=== PATIENT | female | born 1985 ===

== ENCOUNTER 2017-10-24 12:57 | Emergency (ER) | payer MEDICAID, OTHER ==
[2017-10-24 13:03] VITALS: BMI 40.8
[2017-10-24 13:05] VITALS: RESP 18; O2SAT 99
[2017-10-24 13:49] LABS: BASO # 0.1 K/uL (0.0-0.2); BASO % 0.6 % (0.0-2.0); EOS # 0.3 K/uL (0.0-0.7); EOS % 3.8 % (0.0-4.0); LYMPH # 2.1 K/uL (1.0-4.3); LYMPH % 26.5 % (20.0-40.0); MEAN CORPUSCULAR HEMOGLOBIN 28.9 pg (27.0-31.0); MEAN CORPUSCULAR HGB CONC 34.2 g/dL (33.0-37.0); MEAN PLATELET VOLUME 8.3 fL (7.2-11.7); MONO # 0.4 K/uL (0.0-0.8); MONO % 5.3 % (0.0-10.0); NEUT % 63.8 % (50.0-75.0); RBC 4.16 Mil/uL (3.80-5.20); RED CELL DISTRIBUTION WIDTH 13.8 % (11.5-14.5); WHITE BLOOD COUNT 7.9 K/uL (4.8-10.8)
[2017-10-24 14:01] LABS: MEAN CELL VOLUME 84.5 fL (81.0-99.0)
[2017-10-24 14:04] LABS: ALT/SGPT 23 U/L (9-52); BLOOD UREA NITROGEN 14 mg/dL (7-17); CALCIUM 8.7 mg/dl (8.6-10.4); GFR AFRICAN-AMERICAN > 60; GFR NON-AFRICAN AMERICAN > 60
[2017-10-24 14:08] LABS: ALBUMIN 3.8 g/dL (3.5-5.0)
--- NOTE | 2017-10-24 14:14 | C.PDOC ---
History Of Present Illness 32 year old female, , presents to ED for evaluation of pelvic camping and vaginal spotting which started last night. Pt notes bright red blood when wiping , and has not used any pads. Pt states she has had one pre-sylvia visit which was last month, and is scheduled for another visit tomorrow. Denies vaginal discharge, dysuria, urinary frequency, fever, chills, back pain, nausea, or vomiting. Time Seen by Provider: 10/24/17 13:06 Chief Complaint (Nursing): Female Genitourinary History Per: Patient History/Exam Limitations: no limitations Onset/Duration Of Symptoms: Days (1) Current Symptoms Are (Timing): Still Present Quality Of Discomfort: Cramping, "Pain" Associated Symptoms: denies: Loss Of Appetite, Back Pain, Chest Pain, Constipation, Urinary Symptoms Alleviating Factors: None Recent travel outside of the [place]: No Additional History Per: Patient : 3 Para: 1 Past Medical History Reviewed: Historical Data, Nursing Documentation, Vital Signs Vital Signs: Last Vital Signs Temp 97.7 F 10/24/17 15:45 Pulse 73 10/24/17 15:45 Resp 18 10/24/17 15:45 BP 111/72 10/24/17 15:45 Pulse Ox 99 10/24/17 15:45 - [facility] Procedures LOW CERVICAL (01/07/15) 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 Constitutional: Negative for: Fever, Chills Gastrointestinal: Positive for: Abdominal Pain. Negative for: Nausea, Vomiting , Diarrhea, Constipation Genitourinary: Positive for: Vaginal Bleeding (spotting), Pelvic Pain. Negative for: Dysuria, Frequency, Hematuria, Vaginal Discharge Musculoskeletal: Negative for: Back Pain Physical Exam - Physical Exam Appears: Non-toxic, No Acute Distress Skin: Normal Color, Warm, Dry Head: Atraumatic, Normacephalic Eye(s): bilateral: Normal Inspection, EOMI Nose: Normal Oral Mucosa: Moist Neck: Normal ROM, Supple Chest: Symmetrical Cardiovascular: Rhythm Regular Respiratory: Normal Breath Sounds, No Rales, No Rhonchi, No Wheezing Gastrointestinal/Abdominal: Soft, Tenderness (suprapubic), No Guarding, No Rebound Back: No CVA Tenderness Extremity: Normal ROM Neurological/Psych: Oriented x3, Normal Speech ED Course And Treatment - Laboratory Results Result Diagrams: 10/24/17 13:42 10/24/17 13:42 O2 Sat by Pulse Oximetry: 99 (RA) Pulse Ox Interpretation: Normal - CT Scan/US Pelvis US Other Rad Studies (CT/US): Read By Radiologist, Radiology Report Reviewed CT/US Interpretation: Indication: Bleeding. Comparison: None available. Technique: Real-time transabdominal pelvic ultrasound was performed. In addition a transvaginal pelvic ultrasound was necessary to better depict pelvic anatomy. Findings: Uterus measures approximately 11.6 x 4.0 x 6.9 cm. Anteverted. Cervix length measures approximately 3.5 cm. There is a single intrauterine fetus present. The gestational sac measures 2.2 cm and is compatible with a gestational age of 6 weeks 5 days. The crown-rump length measures 0.7 cm and is compatible with a gestational age of 6 weeks 4 days. heart motion was not detected during this examination. The right ovary measures 2.3 x 2.5 x 3.5 cm. The left ovary measures 3.0 x 2.7 x 2.8 cm. Blood flow was demonstrated to both ovaries. Impression: Single intrauterine with estimated gestational age 6 weeks 5 days. heart rate was not detected during this examination. Correlate clinically and follow-up as indicated. Progress Note: Blood work, UA, Preg 1st trimester ultrasound ordered and reviewed. Pt was given Tylenol. On re-eval, patient is resting comfortably, no acute distress. Abdomen remains soft. Pt was given labs and US results and instructed to follow up with her OB as scheduled tomorrow. Disposition - Disposition Disposition: HOME/ ROUTINE Disposition Time: 15:03 Condition: STABLE Additional Instructions: Beta HCG today is 14,000. Follow up with your [employer] [employer] tomorrow as scheduled and show them the results of US. 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 - Scribe Statement The provider has reviewed the documentation as recorded by the Scribe Kripal Burt All medical record entries made by the Eb were at my direction and personally dictated by me. I have reviewed the chart and agree that the record accurately reflects my personal performance of the history, physical exam, medical decision making, and the department course for this patient. I have also personally directed, reviewed, and agree with the discharge instructions and disposition.
[2017-10-24 14:22] LABS: ALB/GLOB RATIO 1.1 (1.0-2.1)
[2017-10-24 14:27] LABS: AST/SGOT 17 U/L (14-36)
--- NOTE | 2017-10-24 14:53 | US ---
Indication: Bleeding Comparison: None available Technique: Real-time transabdominal pelvic ultrasound was performed. In addition a transvaginal pelvic ultrasound was necessary to better depict pelvic anatomy. Findings: Uterus measures approximately 11.6 x 4.0 x 6.9 cm. Anteverted. Cervix length measures approximately 3.5 cm. There is a single intrauterine fetus present. The gestational sac measures 2.2 cm and is compatible with a gestational age of 6 weeks 5 days. The crown-rump length measures 0.7 cm and is compatible with a gestational age of 6 weeks 4 days. heart motion was not detected during this examination. The right ovary measures 2.3 x 2.5 x 3.5 cm. The left ovary measures 3.0 x 2.7 x 2.8 cm. Blood flow was demonstrated to both ovaries. Impression: Single intrauterine with estimated gestational age 6 weeks 5 days. heart rate was not detected during this examination. Correlate clinically and follow-up as indicated.
[2017-10-24 15:18] LABS: HCG,QUALITATIVE URINE POSITIVE (NEGATIVE)
[2017-10-24 15:30] LABS: URINE BILIRUBIN NEGATIVE (NEGATIVE); URINE BLOOD 2+ (NEGATIVE); URINE CLARITY Clear (Clear); URINE COLOR Colorless (YELLOW); URINE GLUCOSE (UA) NORMAL (Normal); URINE LEUKOCYTE ESTERASE NEG Leu/uL (Negative); URINE PROTEIN NEGATIVE (NEGATIVE); URINE UROBILINOGEN NORMAL mg/dL (0.2-1.0)
[2017-10-24 15:40] LABS: SQUAMOUS EPITHIAL 0 /hpf (0-5)
[2017-10-24 15:50] VITALS: BP 111/72; PULSE 73; TEMP 97.7
== END 2017-10-24 16:02 | disposition home or self-care (01) ==
LOC: C.ER 12:57
DX: O20.9 Hemorrhage in early pregnancy, unspecified (principal); Z3A.01 Less than 8 weeks gestation of pregnancy

== ENCOUNTER 2017-10-26 15:14 | Emergency (ER) | payer MEDICAID ==
[2017-10-26 15:15] VITALS: BMI 40.8
[2017-10-26 15:34] VITALS: RESP 18; O2SAT 100
[2017-10-26 16:24] LABS: BASO # 0.1 K/uL (0.0-0.2); BASO % 0.6 % (0.0-2.0); EOS # 0.4 K/uL (0.0-0.7); EOS % 4.3 % (0.0-4.0); HEMOGLOBIN 12.3 g/dL (11.0-16.0); LYMPH # 2.1 K/uL (1.0-4.3); LYMPH % 23.2 % (20.0-40.0); MEAN CELL VOLUME 84.1 fL (81.0-99.0); MEAN CORPUSCULAR HEMOGLOBIN 27.8 pg (27.0-31.0); MEAN PLATELET VOLUME 8.1 fL (7.2-11.7); MONO # 0.7 K/uL (0.0-0.8); MONO % 7.6 % (0.0-10.0); NEUT # 5.8 K/uL (1.8-7.0); NEUT % 64.3 % (50.0-75.0); NRBC % 0.1 % (0.0-2.0); RBC 4.42 Mil/uL (3.80-5.20); RED CELL DISTRIBUTION WIDTH 14.2 % (11.5-14.5)
[2017-10-26 16:34] LABS: HCG,QUALITATIVE URINE POSITIVE (NEGATIVE)
[2017-10-26 16:42] LABS: SQUAMOUS EPITHIAL 2 /hpf (0-5); URINE BACTERIA OCC (<OCC); URINE BILIRUBIN NEGATIVE (NEGATIVE); URINE BLOOD 3+ (NEGATIVE); URINE CLARITY Hazy (Clear); URINE COLOR Red (YELLOW); URINE GLUCOSE (UA) 1+ mg/dL (Normal); URINE LEUKOCYTE ESTERASE NEG Leu/uL (Negative); URINE PROTEIN 2+ mg/dL (NEGATIVE); URINE UROBILINOGEN NORMAL mg/dL (0.2-1.0)
[2017-10-26 16:45] LABS: ALB/GLOB RATIO 1.2 (1.0-2.1); ALBUMIN 4.1 g/dL (3.5-5.0); ALT/SGPT 20 U/L (9-52); AST/SGOT 17 U/L (14-36); BLOOD UREA NITROGEN 11 mg/dL (7-17); CALCIUM 8.4 mg/dl (8.6-10.4); GFR AFRICAN-AMERICAN > 60; GFR NON-AFRICAN AMERICAN > 60
--- NOTE | 2017-10-26 17:17 | C.PDOC ---
History Of Present Illness 32-year-old female, , LMP end of July, comes in complaining of heavy bleeding and cramping. Patient used four pads today with clotting. Patient states that two days ago, she was seen and evaluated in ED. Patient followed up with OBGYN yesterday, who instructed her to do serial weekly Beta HCG. The bleeding increased today, resulting in her coming to ED for evaluation. Denies dysuria, urinary frequency, nausea/vomiting, back pain, fever, or any other associated symptoms. 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 Negative for: Dysuria Musculoskeletal: Negative for: Back Pain Skin: Negative for: Rash Neurological: Negative for: Weakness, Numbness, Headache, Dizziness Physical Exam - Physical Exam Appears: Non-toxic, No Acute Distress Skin: Normal Color, Warm, Dry, No Rash Head: Normacephalic Eye(s): bilateral: Normal Inspection, EOMI Nose: Normal Oral Mucosa: Moist Lips: Normal Appearing Neck: Normal ROM Chest: Symmetrical Cardiovascular: Rhythm Regular Respiratory: Normal Breath Sounds, No Accessory Muscle Use Gastrointestinal/Abdominal: Soft, No Tenderness, No Guarding, No Rebound Extremity: Normal ROM, No Deformity, No Swelling Neurological/Psych: Oriented x3, Normal Speech ED Course And Treatment - Laboratory Results Result Diagrams: 10/26/17 16:20 03/13/18 16:20 O2 Sat by Pulse Oximetry: 100 (RA) Pulse Ox Interpretation: Normal Progress Note: Bloodwork and UA ordered and reviewed. Case discussed with Dr Barnett who evalauted work up from today and 10/24 and notes pt is having miscarriage and to follow up OBGYN in 2-3 days. Disposition - Disposition Disposition: HOME/ ROUTINE Disposition Time: 17:15 Condition: STABLE Additional Instructions: On 10/24/17 , your Beta HCG was 14,000. Today it is 10,000. Please follow up with your OB as scheduled or return to ER if symptoms persist or worsen. Instructions: Miscarriage (DC) Forms: Work/School/Gym Excuse, [facility] (Irish) - Clinical Impression Clinical Impression: Miscarriage - Scribe Statement The provider has reviewed the documentation as recorded by the Scribe (Sanaz Chaudhry) All medical record entries made by the Scribe were at my direction and personally dictated by me. I have reviewed the chart and agree that the record accurately reflects my personal performance of the history, physical exam, medical decision making, and the department course for this patient. I have also personally directed, reviewed, and agree with the discharge instructions and disposition.
[2017-10-26 17:46] VITALS: BP 95/63; PULSE 83; TEMP 98
== END 2017-10-26 17:45 | disposition home or self-care (01) ==
LOC: C.ER 15:14
DX: O03.9 Complete or unspecified spontaneous abortion without complication (principal)

== ENCOUNTER 2018-11-25 20:25 | Emergency (ER) | payer MEDICAID ==
[2018-11-25 20:25] VITALS: BMI 40.8
[2018-11-25] MEDS ORDERED: Sodium Chloride 0.9% 1,000 ML IV ONE (20:56)
--- NOTE | 2018-11-25 20:56 | C.PDOC ---
History Of Present Illness Patient presents to the hospital c/o vaginal spotting that began today. Pt states she is about 8 weeks . had a miscarriage last year. No f/c/n/v. Time Seen by Provider: 11/25/18 20:55 Chief Complaint (Nursing): Female Genitourinary History Per: Patient History/Exam Limitations: no limitations Onset/Duration Of Symptoms: Hrs Current Symptoms Are (Timing): Still Present Associated Symptoms: denies: Nausea, Vomiting, Chest Pain Recent travel outside of the [place]: No Additional History Per: Patient Abnormal Vaginal Bleeding: Yes Past Medical History Reviewed: Historical Data, Nursing Documentation, Vital Signs Vital Signs: Last Vital Signs Temp 98.2 F 11/25/18 20:31 Pulse 87 11/25/18 20:31 Resp 20 11/25/18 20:31 BP 141/85 11/25/18 20:31 Pulse Ox 100 11/25/18 20:31 - [facility] Procedures LOW CERVICAL (01/07/15) 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) Family History: States: Unknown Family Hx - Social History Hx Alcohol Use: No Hx Substance Use: No - Immunization History Hx Tetanus Toxoid Vaccination: No Hx Influenza Vaccination: No Hx Pneumococcal Vaccination: No Review Of Systems Cardiovascular: Negative for: Chest Pain Respiratory: Negative for: Shortness of Breath Gastrointestinal: Negative for: Nausea, Vomiting Genitourinary: Positive for: Vaginal Bleeding Physical Exam - Physical Exam Appears: Non-toxic, No Acute Distress Skin: Warm, Dry Head: Normacephalic Eye(s): bilateral: Normal Inspection Oral Mucosa: Moist Neck: Trachea Midline, Supple Chest: Symmetrical Cardiovascular: Rhythm Regular Respiratory: No Rales, No Rhonchi, No Wheezing Gastrointestinal/Abdominal: Soft, Tenderness (mild suprapubic ), No Distention, No Guarding, No Rebound Extremity: Bilateral: Normal Color And Temperature Pulses: Left Dorsalis Pedis: Normal, Right Dorsalis Pedis: Normal Neurological/Psych: Oriented x3 Gait: Steady ED Course And Treatment - Laboratory Results Result Diagrams: 11/25/18 21:06 11/25/18 21:06 O2 Sat by Pulse Oximetry: 100 (on RA) Pulse Ox Interpretation: Normal Progress Note: Plan: Labs. IV Fluids. Urinalysis Disposition Counseled Patient/Family Regarding: Studies Performed, Diagnosis, Need For Followup - Disposition Referrals: Cedrick Veliz MD [Staff Provider] - Disposition: HOME/ ROUTINE Disposition Time: 20:56 Condition: FAIR Additional Instructions: Please return if symptoms recur Instructions: Bleeding With (DC), Threatened Miscarriage (DC) Forms: [facility] (Surinamese) - Clinical Impression Clinical Impression: Threatened - Scribe Statement The provider has reviewed the documentation as recorded by the Fátimaibpipo Moran All medical record entries made by the Fátimaibpipo were at my direction and personally dictated by me. I have reviewed the chart and agree that the record accurately reflects my personal performance of the history, physical exam, medical decision making, and the department course for this patient. I have also personally directed, reviewed, and agree with the discharge instructions and disposition.
[2018-11-25 21:12] LABS: BASO # 0.1 K/uL (0.0-0.2); BASO % 0.7 % (0.0-2.0); EOS # 0.1 K/uL (0.0-0.7); EOS % 1.3 % (0.0-4.0); HEMOGLOBIN 12.6 g/dL (11.0-16.0); LYMPH # 2.5 K/uL (1.0-4.3); LYMPH % 28.8 % (20.0-40.0); MEAN CELL VOLUME 84.5 fL (81.0-99.0); MEAN CORPUSCULAR HEMOGLOBIN 28.5 pg (27.0-31.0); MEAN CORPUSCULAR HGB CONC 33.7 g/dL (33.0-37.0); MEAN PLATELET VOLUME 8.3 fL (7.2-11.7); MONO # 0.6 K/uL (0.0-0.8); MONO % 6.4 % (0.0-10.0); NEUT # 5.4 K/uL (1.8-7.0); NEUT % 62.8 % (50.0-75.0); NRBC % 0.1 % (0.0-2.0); RBC 4.42 Mil/uL (3.80-5.20); RED CELL DISTRIBUTION WIDTH 13.6 % (11.5-14.5); WHITE BLOOD COUNT 8.7 K/uL (4.8-10.8)
[2018-11-25 21:22] LABS: SQUAMOUS EPITHIAL 2 /hpf (0-5); URINE BILIRUBIN NEGATIVE (NEGATIVE); URINE BLOOD 2+ (NEGATIVE); URINE CLARITY Hazy (Clear); URINE COLOR Yellow (YELLOW); URINE GLUCOSE (UA) NORMAL (Normal); URINE LEUKOCYTE ESTERASE NEG Leu/uL (Negative); URINE PROTEIN NEGATIVE (NEGATIVE); URINE UROBILINOGEN NORMAL mg/dL (0.2-1.0)
[2018-11-25 21:26] LABS: ALB/GLOB RATIO 1.4 (1.0-2.1); ALBUMIN 4.3 g/dL (3.5-5.0); BLOOD UREA NITROGEN 13 mg/dL (7-17); CALCIUM 9.6 mg/dl (8.6-10.4); GFR NON-AFRICAN AMERICAN > 60
[2018-11-25 21:41] LABS: ALT/SGPT 7 U/L (9-52); AST/SGOT 27 U/L (14-36)
[2018-11-26 00:23] VITALS: BP 106/73; PULSE 79; RESP 18; TEMP 98.6
[2018-11-26 01:17] VITALS: O2SAT 100
--- NOTE | 2018-11-26 15:33 | US ---
Pelvic ultrasound HISTORY: . Vaginal bleeding. COMPARISON: None available. Technique: Real-time sonography was performed through the pelvis utilizing transvaginal technique. Findings: Uterus: 12.0 x 6.5 x 6.7 centimeters. Heterogeneous echotexture. Anteverted. Cervix measures 3.3 centimeters. Intrauterine gestational sac measuring 2.8 centimeters corresponding to a gestational age of 7 weeks and 5 days. Yolk sac identified measuring 3.5 millimeters. [place]-rump length measures 1.25 centimeters corresponding to a gestational age of 7 weeks and 3 days. heart rate of 125 beats per minute. Suggestion of possible subchorionic hemorrhage adjacent to the gestational sac measuring 1.3 x 0.3 x 1.3 centimeters. Right ovary: 4.2 x 2.6 x 4.1 centimeters. Normal flow. Heterogeneous hypoechoic cyst measuring 2.3 x 1.6 x 3.0 centimeters and 1.7 x 1.0 x 2.0 centimeters. Left ovary: 3.5 x 1.9 x 3.0 centimeters. Normal flow. Impression: Intrauterine corresponding to a gestational age of 7 weeks and 3 days by crown-rump length of 1.25 centimeters. heart rate of 125 beats per minute. Suggestion of a small amount of subchorionic hemorrhage adjacent to the gestational sac measuring 1.3 x 0.3 x 1.3 centimeters. Clinical correlation. Right ovarian cysts measuring up to 2.3 and 2.0 centimeters. Small nabothian cyst noted at the level of the cervix. Limited 1st trimester ultrasound for viability purposes only. Continued interval followup with serial ultrasound, serial HCG levels, and gynecological consultation would be helpful if clinically indicated. A preliminary report was generated at 12:03 a.m. 11/26/[address] Layton Chavez from [facility]
== END 2018-11-26 01:24 | disposition home or self-care (01) ==
LOC: C.ER 20:25
DX: O20.0 Threatened abortion (principal); Z3A.01 Less than 8 weeks gestation of pregnancy